=== PATIENT | female | born 1985 | race Caucasian/White ===

== ENCOUNTER 2018-04-26 07:20 | Emergency (ER) | payer OTHER, SELFPAY ==
[2018-04-26 07:24] VITALS: BP 137/98; PULSE 77; RESP 16; TEMP 36.5; O2SAT 100; BMI 31.3
--- NOTE | 2018-04-26 07:32 | RAD_ITS ---
STUDY: X-RAY CHEST REASON FOR EXAM: Female, 32 years old. Chest pain TECHNIQUE: PA and lateral views of the chest. COMPARISON: None. FINDINGS: The lungs are clear and expanded. There is no demonstrated pleural abnormality. Normal size heart. Normal mediastinum and brianda. Normal visualized pulmonary arteries. Normal visualized aortic arch and descending thoracic aorta. Normal visualized thoracic spine. Normal visualized ribs, clavicles, and shoulders. There is no demonstrated abnormality of the visualized soft tissue structures of the upper abdomen. RAD/Chest PA and Lateral IMPRESSION: Normal x-ray examination of the chest. Electronically Signed: Jose Bowers DO at 8:14 EST Tel , Service support ,
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
[2018-04-26] MEDS: Ibuprofen 400 MG Tablet 800 MG PO (07:59)
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
== END 2018-04-26 08:42 | disposition home or self-care (01) ==
PROVIDERS: Emergency Provider Emergency Medicine; Family Provider Family Medicine; PCP Family Medicine
DX: S20.212A Contusion of left front wall of thorax, initial encounter (principal); M25.512 Pain in left shoulder; S80.812A Abrasion, left lower leg, initial encounter; V89.2XXA Person injured in unspecified motor-vehicle accident, traffic, initial encounter; Y93.89 Activity, other specified; Y92.9 Unspecified place or not applicable; Z72.0 Tobacco use
CPT/HCPCS: 71046; 73030; 99283